=== PATIENT | male | born 1970 | race African-American/Black ===

== ENCOUNTER 2020-01-24 15:25 | Emergency (ER) | payer BC ==
[~2020-01-24] VITALS: Ht 190.5 cm; Wt 124.7 kg
[2020-01-24 15:47] VITALS: Ht 190.5 cm; Wt 124.7 kg
[2020-01-24 16:39] LABS: CALCIUM 9.4 mg/dL (8.5-10.1); CARBON DIOXIDE 30.6 mmol/L (21-32); CHLORIDE SERUM 100 mmol/L (98-107); GFR1 > 60 mL/min; GLUCOSE SERUM 101 mg/dL (74-106); POTASSIUM SERUM 3.7 mmol/L (3.5-5.1); SODIUM SERUM 139 mmol/L (136-145)
[2020-01-24 16:43] LABS: ALBUMIN 3.9 g/dL (3.4-5.0); ALKALINE PHOSPHATASE 79 U/L (46-116); ALT/SGPT 44 U/L (16-63); AST/SGOT 26 U/L (15-37); BILIRUBIN TOTAL 0.4 mg/dL (0.20-1.00); TOTAL PROTEIN, SERUM 8.1 g/dL (6.4-8.2)
[2020-01-24 17:05] VITALS: BP 185/115
== END 2020-01-24 17:05 | disposition home or self-care (01) ==
LOC: ED 15:25
PROVIDERS: Emergency Medicine
DX: I10 Essential (primary) hypertension (principal)